=== PATIENT | male | born 1985 | race Caucasian/White ===

== ENCOUNTER 2017-02-22 20:50 | Emergency (ER) | payer OTHER ==
[2017-02-22 21:03] VITALS: BP 115/65; PULSE 79; TEMP 97.9; BMI 25.8
[2017-02-22] MEDS ORDERED: predniSONE 20 MG TABLET (UD) ONE (22:04)
[2017-02-22] MEDS ORDERED: ALBUTEROL SO4 2.5/IPRATROPIUM 0.5 INH SOL 3 ML VIAL.NEB. NEB ONE (22:05)
--- NOTE | 2017-02-22 22:50 | PDOC ---
History of Present Illness - General Chief Complaint: Cold Symptoms Stated Complaint: COUGH/COUGHING BLOOD Time Seen by Provider: 02/22/17 21:55 History Source: Patient, Parent(s) Exam Limitations: No Limitations - History of Present Illness Initial Comments: 02/22/17 22:45 came for evaluation of wheezing and cough=- thinks is related to allergies . Denies fever, denies phlegm or nasal drainage but states cough has become more moist and feels tighter. His takenZyrtec and nasal steroids per prescription, but without relief. 02/22/17 22:59 Timing/Duration: reports: changing over time, getting worse Severity: reports: moderate Modifying Factors: improves with: albuterol inhaler, coughing Associated Symptoms: reports: cough, earache. denies: chest pain/soreness, dizziness, fever/chills Past History - Travel Traveled outside of the country in the last 30 days: Yes Close contact w/someone who was outside of country & ill: Yes - Past Medical History Allergies/Adverse Reactions: Allergies Allergy/AdvReac Type Severity Reaction Status Date / Time No Known Allergies Allergy Verified 02/22/17 20:59 Home Medications: Ambulatory Orders Albuterol Sulfate [Proventil HFA Inhaler -] 1 - 2 inh PO QID #1 inhaler Prednisone [Deltasone -] 20 mg PO BID #8 tablet 02/22/17 Other medical history: polycythemia vera - Surgical History Abdominal Surgery: Yes (INGUINAL AND UMBILICAL HERNIA REPAIR) - Psycho/Social/Smoking Cessation Hx Suicidal Ideation: No Smoking History: Never smoked Have you smoked in the past 12 months: No Number of Cigarettes Smoked Daily: 0 Information on smoking cessation initiated: No Hx Alcohol Use: Yes (WEEKENDS) Drug/Substance Use Hx: No Substance Use Type: Alcohol Review of Systems - Review of Systems Able to Perform ROS?: Yes Is the patient limited Ugandan proficient: Yes Constitutional: Yes: Symptoms Reported, See HPI, Malaise. No: Fever HEENTM: Yes: See HPI, Nose Congestion. No: Symptoms Reported Respiratory: Yes: Symptoms reported, See HPI, Cough, Wheezing ABD/GI: Yes: Symptoms Reported, See HPI Integumentary: Yes: Symptoms Reported Neurological: Yes: Symptoms reported, See HPI. No: Headache All Other Systems: Reviewed and Negative *Physical Exam - Vital Signs Last Vital Signs Temp Pulse Resp BP Pulse Ox 97.9 F 79 18 115/65 97 02/22/17 20:59 02/22/17 20:59 02/22/17 20:59 02/22/17 20:59 02/22/17 20:59 - Physical Exam General Appearance: Yes: Nourished, Appropriately Dressed, Apparent Distress, Mild Distress HEENT: positive: BHAVNA, Normal ENT Inspection, TMs Normal, Pharynx Normal Neck: positive: Supple. negative: Tender, Lymphadenopathy (R), Lymphadenopathy (L) Respiratory/Chest: positive: Lungs Clear (but tight ), Wheezing (tight inspiratory ). negative: Normal Breath Sounds, Respiratory Distress Cardiovascular: positive: Regular Rate Gastrointestinal/Abdominal: positive: Normal Bowel Sounds, Soft. negative: Tender Extremity: positive: Normal Capillary Refill, Normal Inspection Integumentary: positive: Normal Color, Dry, Pale Neurologic: positive: purse seiner II-XII NML intact, Fully Oriented, Alert, Normal Mood/ Affect, Normal Response, Motor Strength 5/5 Progress Note - Progress Note Progress Note: ALLERGIC rhinitis, will treat with steroids, Proventil and discharge *DC/Admit/Observation/Transfer Diagnosis at time of Disposition: Allergic rhinitis Qualifiers: Allergic rhinitis trigger: unspecified Allergic rhinitis seasonality: unspecified seasonality Qualified Code(s): J30.9 - Allergic rhinitis, unspecified - Discharge Dispostion Disposition: HOME Condition at time of disposition: Stable Admit: No - Patient Instructions Printed Discharge Instructions: DI for Allergic Rhinitis Additional Instructions: Rest, drink lots of fluids: Teas, water, soups Saltwater gargles. Consider humidifier in room at night Steamy showers/seem to face break up mucus Avoid contact with allergens, exposure to pollens, close windows on a windy day Lots of handwashing and good hygiene Continue [id number] medications for symptomatic relief- may use allergic eyedrops for itching I Continue antihistamines daily until pollen season is over; Zyrtec, Claritin, Nirmala during the daytime and Benadryl at nighttime as will make sleepy Tylenol or Motrin for fever and pain Followup with private physician in one to 2 days as needed Consider following up with an ict account manager/confectionery maker for skin testing and possible allergy shots Return to emergency department for worsened symptoms, fevers, dehydration - Post Discharge Activity Work/School Note: Back to Work
== END 2017-02-22 22:58 | disposition home or self-care (01) ==
LOC: JERFT 20:50
DX: J30.9 Allergic rhinitis, unspecified (principal)
CPT/HCPCS: 99281-25

== ENCOUNTER → 2017-05-01 | Emergency (ER) | payer OTHER ==
[2017-05-01 02:37] VITALS: BP 131/86; PULSE 84; TEMP 97.5; BMI 28.1
--- NOTE | 2017-05-01 03:04 | PDOC ---
History of Present Illness - General Chief Complaint: Palpitations Stated Complaint: PALPITATIONS Time Seen by Provider: 05/01/17 03:02 History Source: Patient Exam Limitations: No Limitations - History of Present Illness Initial Comments: 05/01/17 04:05 31-year-old male with no medical history presents to the emergency department complaining of chest palpitations. Patient states he was resting yesterday, watching television when he felt an acute onset of chest palpitations lasting for approximately 2 minutes. This evening at approximately 2300 hrs., patient felt a second episode of chest palpitations lasting approximately 30 seconds while at rest. Patient denies headache, dizziness, lightheadedness, visual disturbance, neck pain, back pains, shortness of breath, abdominal pains, extremity numbness or tingling sensation. Patient denies any cardiac history. Patient states he's been a bit stress over the past 2 weeks Presenting Symptoms: Chest Pain Timing/Duration: reports: intermittent Severity/Quality: reports: dull Past History - Travel Traveled outside of the country in the last 30 days: No Close contact w/someone who was outside of country & ill: No - Past Medical History Allergies/Adverse Reactions: Allergies Allergy/AdvReac Type Severity Reaction Status Date / Time No Known Allergies Allergy Verified 05/01/17 02:20 Home Medications: Ambulatory Orders Albuterol Sulfate [Proventil HFA Inhaler -] 1 - 2 inh PO QID #1 inhaler Prednisone [Deltasone -] 20 mg PO BID #8 tablet 02/23/17 - Surgical History Abdominal Surgery: Yes (INGUINAL AND UMBILICAL HERNIA REPAIR) - Psycho/Social/Smoking Cessation Hx Suicidal Ideation: No Smoking History: Never smoked Have you smoked in the past 12 months: No Number of Cigarettes Smoked Daily: 0 Information on smoking cessation initiated: No Hx Alcohol Use: No Drug/Substance Use Hx: No Substance Use Type: Alcohol Review of Systems - Review of Systems Able to Perform ROS?: Yes Comments:: 05/01/17 04:10 CONSTITUTIONAL: Absent: fever, chills, diaphoresis, generalized weakness, malaise, loss of appetite HEENT: Absent: rhinorrhea, nasal congestion, throat pain, throat swelling, difficulty swallowing, mouth swelling, ear pain, eye pain, visual Changes CARDIOVASCULAR: +chest palpitations Absent: chest pain, loss of consciousness, palpitations, irregular heart rate, peripheral edema RESPIRATORY: Absent: cough, shortness of breath, dyspnea with exertion, orthopnea, wheezing, stridor, hemoptysis GASTROINTESTINAL: Absent: abdominal pain, abdominal distension, nausea, vomiting, diarrhea, constipation, melena, hematochezia GENITOURINARY: Absent: dysuria, frequency, urgency, hesitancy, hematuria, flank pain, genital pain MUSCULOSKELETAL: Absent: myalgia, arthralgia, joint swelling SKIN: Absent: rash, itching, pallor HEMATOLOGIC/IMMUNOLOGIC: Absent: easy bleeding, easy bruising, lymphadenopathy, frequent infections ENDOCRINE: Absent: unexplained weight gain, unexplained weight loss, heat intolerance, cold intolerance NEUROLOGIC: Absent: headache, focal weakness or paresthesias, dizziness, unsteady gait, seizure, mental status changes, bladder or bowel incontinence PSYCHIATRIC: Absent: anxiety, depression, suicidal or homicidal ideation, hallucinations. Is the patient limited Irish proficient: No *Physical Exam - Vital Signs Last Vital Signs Temp Pulse Resp BP Pulse Ox 97.5 F L 84 20 131/86 98 05/01/17 02:20 05/01/17 02:20 05/01/17 02:20 05/01/17 02:20 05/01/17 02:20 - Physical Exam Comments: 05/01/17 04:10 GENERAL: Well developed, well nourished. Awake and alert. No acute distress. HEENT: Normocephalic, atraumatic. PERRLA, EOMI. No conjunctival pallor. Sclera are non- icteric. Moist mucous membranes. Oropharynx is clear. NECK: Supple. Full ROM. No JVD. Carotid pulses 2+ and symmetric, without bruits. No thyromegaly. No lymphadenopathy. CARDIOVASCULAR: Regular rate and rhythm. No murmurs, rubs, or gallops. Distal pulses are 2+ and symmetric. PULMONARY: No evidence of respiratory distress. Lungs clear to auscultation bilaterally. No wheezing, rales or rhonchi. ABDOMINAL: Soft. Non-tender. Non-distended. No rebound or guarding. No organomegaly. Normoactive bowel sounds. MUSCULOSKELETAL Normal range of motion at all joints. No bony deformities or tenderness. No CVA tenderness. EXTREMITIES: No cyanosis. No clubbing. No edema. No calf tenderness. SKIN: Warm and dry. Normal capillary refill. No rashes. No jaundice. NEUROLOGICAL: Alert, awake, appropriate. Cranial nerves 2-12 intact. No deficits to light touch and temperature in face, upper extremities and lower extremities. No motor deficits in the in face, upper extremities and lower extremities. Normoreflexic in the upper and lower extremities. Normal speech. Toes are down- going bilaterally. Gait is normal without ataxia. PSYCHIATRIC: Cooperative. Good eye contact. Appropriate mood and affect. Heart Score/ECG Review - History History: Slightly suspicious - Electrocardiogram EKG: Normal - Age Age: >/= 65 - Risk Factors Based on the list above the patient has:: No risk factors known - Troponin Troponin: </= normal limit - Score Heart Score - Total: 2 ED Treatment Course - LABORATORY CBC & Chemistry Diagram: 05/01/17 03:08 05/01/17 03:08 - ADDITIONAL ORDERS Additional order review: Laboratory Results 05/01/17 05/01/17 03:08 03:08 Sodium 141 Potassium 4.3 Chloride 105 Carbon Dioxide 30 Anion Gap 6 L BUN 13 Creatinine 0.9 Creat Clearance w eGFR > 60 Random Glucose 87 Calcium 8.9 Total Bilirubin 0.3 D AST 18 ALT 32 D Alkaline Phosphatase 66 Creatine Kinase 126 Troponin I < 0.02 Total Protein 7.3 Albumin 3.8 Opiates Screen Negative Methadone Screen Negative Barbiturate Screen Negative Phencyclidine Screen Negative Ur Amphetamines Screen Negative MDMA (Ecstasy) Screen Negative Benzodiazepines Screen Negative Cocaine Screen Negative U Marijuana (THC) Screen Negative 05/01/17 03:08 RBC 6.21 H MCV 78.1 L MCHC 32.3 RDW 17.1 H MPV 9.1 Neutrophils % 35.5 L Lymphocytes % 52.4 H Monocytes % 7.5 Eosinophils % 3.6 Basophils % 1.0 - RADIOLOGY Radiograph Interpretation: 05/01/17 04:53 CXR 2v NAD *DC/Admit/Observation/Transfer Diagnosis at time of Disposition: Heart palpitations - Discharge Dispostion Condition at time of disposition: Stable Admit: No - Referrals Referrals: Colton Salamanca MD [Staff Physician] - - Patient Instructions Printed Discharge Instructions: DI for Palpitations Additional Instructions: Follow up with the optometry doctor this week. You will need an echocardiogram Return to the ER for severe/persistent/worsening symptoms
[2017-05-01 03:19] LABS: EOSINOPHIL 3.6 % (0-4.5); MCH 25.3 pg (25.7-33.7); MCHC 32.3 g/dl (32.0-35.9); MEAN CELL VOLUME 78.1 fl (80-96); MEAN PLT VOLUME 9.1 fl (7.5-11.1); NEUTROPHILS 35.5 % (42.8-82.8); PLATELET COUNT 227 K/MM3 (134-434); RDW 17.1 % (11.9-15.9)
[2017-05-01 03:34] LABS: URINE MARIJUANA THC NEGATIVE ng/ml (CUTOFF=50)
[2017-05-01 03:50] LABS: ALBUMIN 3.8 g/dl (3.4-5.0); ANION GAP 6 (8-16); BILIRUBIN,TOTAL 0.3 mg/dL (0.2-1.0); CALCIUM 8.9 mg/dL (8.5-10.1); CO2 30 mmol/L (21-32); CREATININE 0.9 mg/dL (0.7-1.3); GLUCOSE,RANDOM 87 mg/dL (74-106); SGPT/ALT 32 U/L (12-78); TOT PROT 7.3 g/dl (6.4-8.2)
[2017-05-01 03:56] LABS: ALK PHOS 66 U/L (45-117); TROPONIN I < 0.02 ng/ml (0.00-0.05)
[2017-05-01 03:57] LABS: SGOT/AST 18 U/L (15-37)
--- NOTE | 2017-05-03 09:29 | EKG ---
Test Reason : Blood Pressure : / mmHG Vent. Rate : 076 BPM Atrial Rate : 076 BPM P-R Int : 156 ms QRS Dur : 082 ms QT Int : 354 ms P-R-T Axes : 055 060 024 degrees QTc Int : 398 ms NORMAL SINUS RHYTHM NORMAL ECG WHEN COMPARED WITH ECG OF 28-SEP-2016 16:59, NO SIGNIFICANT CHANGE WAS FOUND Confirmed by HERMAN GUTIÉRREZ MD ([id number]) on 05/03/2017 9:28:53 AM Referred By: Confirmed By:HERMAN GUTIÉRREZ MD
== END | disposition home or self-care (01) ==
LOC: JER 01:19
DX: R00.2 Palpitations (principal)
CPT/HCPCS: 36415; 71020-TC; 80053; 80307; 82550; 84484; 85025; 93005; 93010; 99283-25

== ENCOUNTER 2017-07-07 23:26 | Emergency (ER) | payer OTHER ==
[2017-07-07 23:35] VITALS: BP 136/84; PULSE 93; TEMP 98.4; BMI 26.5
--- NOTE | 2017-07-08 00:39 | PDOC ---
History of Present Illness - General History Source: Patient <ElliottkhloePaco - Last Filed: 07/08/17 00:42> - General History Source: Patient Exam Limitations: No Limitations <Mary Matta - Last Filed: 07/08/17 00:51> - General Chief Complaint: Palpitations Stated Complaint: PALPITATIONS Time Seen by Provider: 07/08/17 00:39 - History of Present Illness Initial Comments: 07/08/17 00:50 31 yo M with no pmhx who presents to the ED with complaint of palpitations. Patient was seen here in April for the same complaint, had lab work done, EKG was good and he was referred to Dr. Salamanca of cardiology for follow up. He notes that his palpitations continue. He denies any cp, SOB, nausea, vomiting, diarrhea, fever, chills. He denies any urinary complaints. He denies any recent travel outside of the country [place] - no alcohol use, cigarette use or IVDU. (Mary Matta) Past History - Past Medical History Anemia: No Asthma: No Cancer: No Cardiac Disorders: No CVA: No COPD: No DVT: No Dementia: No Diabetes: No Dialysis: No GI Disorders: No Disorders: No HTN: No Hypercholesterolemia: No Kidney Stones: No Liver Disease: No Psychiatric Problems: No Seizures: No Thyroid Disease: Yes (Sleep Problems) Lung CA: No - Surgical History Abdominal Surgery: Yes (INGUINAL AND UMBILICAL HERNIA REPAIR) - Suicide/Smoking/Psychosocial Hx Smoking History: Never smoked Have you smoked in the past 12 months: No Number of Cigarettes Smoked Daily: 0 Hx Alcohol Use: No Drug/Substance Use Hx: No Substance Use Type: Alcohol <Paco Yang - Last Filed: 07/08/17 00:42> <Mary Matta - Last Filed: 07/08/17 00:51> - Past Medical History Allergies/Adverse Reactions: Allergies Allergy/AdvReac Type Severity Reaction Status Date / Time No Known Allergies Allergy Verified 07/07/17 23:35 Home Medications: Ambulatory Orders Diphenhydramine HCl [Benadryl -] 25 mg PO HS 05/01/17 Review of Systems <Paco Yang - Last Filed: 07/08/17 00:42> - Review of Systems Able to Perform ROS?: Yes <Mary Matta - Last Filed: 07/08/17 00:51> - Review of Systems Comments:: 07/08/17 00:50 CONSTITUTIONAL: Absent: fever, chills, diaphoresis, generalized weakness, malaise, loss of appetite HEENT: Absent: rhinorrhea, nasal congestion, throat pain, throat swelling, difficulty swallowing, mouth swelling, ear pain, eye pain, visual Changes CARDIOVASCULAR: Present: palpitations Absent: chest pain, syncope, irregular heart rate, lightheadedness, peripheral edema RESPIRATORY: Absent: cough, shortness of breath, dyspnea with exertion, orthopnea, wheezing, stridor, hemoptysis GASTROINTESTINAL: Absent: abdominal pain, abdominal distension, nausea, vomiting, diarrhea, constipation, melena, hematochezia GENITOURINARY: Absent: dysuria, frequency, urgency, hesitancy, hematuria, flank pain, genital pain MUSCULOSKELETAL: Absent: myalgia, arthralgia, joint swelling SKIN: Absent: rash, itching, pallor HEMATOLOGIC/IMMUNOLOGIC: Absent: easy bleeding, easy bruising, lymphadenopathy, frequent infections ENDOCRINE: Absent: unexplained weight gain, unexplained weight loss, heat intolerance, cold intolerance NEUROLOGIC: Absent: headache, focal weakness or paresthesias, dizziness, unsteady gait, seizure, mental status changes, bladder or bowel incontinence PSYCHIATRIC: Absent: anxiety, depression, suicidal or homicidal ideation, hallucinations. (Mary Matta) *Physical Exam <Paco Yang - Last Filed: 07/08/17 00:42> <Mary Matta - Last Filed: 07/08/17 00:51> - Vital Signs Last Vital Signs Temp Pulse Resp BP Pulse Ox 98.4 F 93 H 18 136/84 99 07/07/17 23:33 07/07/17 23:33 07/07/17 23:33 07/07/17 23:33 07/07/17 23:33 - Physical Exam Comments: 07/08/17 00:50 GENERAL: Well developed, well nourished. Awake and alert. In no acute distress. HEENT: Normocephalic, atraumatic. PERRLA, EOMI. No conjunctival pallor. Sclerae are non -icteric. Moist mucous membranes. Oropharynx is clear. NECK: Supple. Full ROM. No JVD. Carotid pulses 2+ and symmetric, without bruits. No thyromegaly. No lymphadenopathy. CARDIOVASCULAR: Regular rate and rhythm. No murmurs, rubs, or gallops. Distal pulses are 2+ and symmetric. PULMONARY: No evidence of respiratory distress. Lungs clear to auscultation bilaterally. No wheezing, rales or rhonchi. ABDOMINAL: Soft. Non-tender. Non-distended. No rebound or guarding. No organomegaly. Normoactive bowel sounds. MUSCULOSKELETAL Normal range of motion at all joints. No bony deformities or tenderness. No CVA tenderness. EXTREMITIES: No cyanosis. No clubbing. No edema. No calf tenderness. SKIN: Warm and dry. Normal capillary refill. No rashes. No jaundice. NEUROLOGICAL: Alert, awake, appropriate. Cranial nerves 2-12 intact. No deficits to light touch and temperature in face, upper extremities and lower extremities. No motor deficits in the in face, upper extremities and lower extremities. Normoreflexic in the upper and lower extremities. Normal speech. Toes are downgoing bilaterally. PSYCHIATRIC: Cooperative. Good eye contact. Appropriate mood and affect. (Mary Matta) Heart Score/ECG Review <Mary Matta - Last Filed: 07/08/17 00:51> #1 07/08/17 00:51 NS at 89 bpm Normal ECG (Mary Matta) *DC/Admit/Observation/Transfer - Discharge Dispostion Admit: No <Paco Yang - Last Filed: 07/08/17 00:42> <Mary Matta - Last Filed: 07/08/17 00:51> Diagnosis at time of Disposition: Heart palpitations - Referrals Referrals: Colton Salamanca MD [Staff Physician] - - Patient Instructions Printed Discharge Instructions: DI for Palpitations Additional Instructions: Please make appointment earlier to follow up with cardiology. - Attestations Scribe Attestion: 07/08/17 00:51 Documentation prepared by FLORA Amezquita, acting as director of graduate medical education for Paco Yang DO. (Mary Matta)
--- NOTE | 2017-07-15 14:18 | EKG ---
Test Reason : Blood Pressure : / mmHG Vent. Rate : 089 BPM Atrial Rate : 089 BPM P-R Int : 154 ms QRS Dur : 086 ms QT Int : 352 ms P-R-T Axes : 051 061 028 degrees QTc Int : 428 ms NORMAL SINUS RHYTHM NORMAL ECG WHEN COMPARED WITH ECG OF 01-MAY-2017 02:03, NO SIGNIFICANT CHANGE WAS FOUND Confirmed by HERMAN GUTIÉRREZ MD ([id number]) on 07/15/2017 2:17:55 PM Referred By: Confirmed By:HERMAN GUTIÉRREZ MD
== END 2017-07-08 00:46 | disposition home or self-care (01) ==
LOC: JER 23:26
DX: R00.2 Palpitations (principal)
CPT/HCPCS: 93005; 93010; 99282-25

== ENCOUNTER 2017-07-18 20:51 | Emergency (ER) | payer OTHER ==
[2017-07-18 21:08] VITALS: BP 131/83; PULSE 87; TEMP 98.6; BMI 25.8
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
== END 2017-07-18 22:15 | disposition home or self-care (01) ==
LOC: JERFT 20:51
DX: R09.81 Nasal congestion (principal)
CPT/HCPCS: 99281-25

== ENCOUNTER 2018-02-26 02:17 | Emergency (ER) | payer OTHER ==
--- NOTE | 2018-02-26 03:19 | PDOC ---
History of Present Illness - General History Source: Patient Exam Limitations: No Limitations - History of Present Illness Initial Comments: 02/26/18 06:35 Patient is a 32 year old male with no significant past medical history who presents to the ED with complaints of coughing that he states began x3 weeks ago. Patient reports experiencing cough sudden cough that he states began 3 weeks ago, and has shown no signs of subsiding. He reports experiencing associated right flank pain that he states is increased secondary to cough. Patient reports going to urgent care earlier this week for cough, stating he was prescribed cough medicine and discharged. Denies chest pain, sob. Denies nausea vomiting. Denies fevers, chills. Denies contact with sick individuals, out of state travelling. Denies any other symptoms. Allergies: None Social history: Lived with girlfriend. No smoking. No alcohol. No illicit drugs. Surgical history: None PMD: None <Beny Calderon - Last Filed: 02/26/18 06:35> <Eva Arreguin - Last Filed: 02/27/18 05:25> - General Stated Complaint: COUGH, BACK PAIN Time Seen by Provider: 02/26/18 03:00 Past History <Beny Calderon - Last Filed: 02/26/18 06:35> - Past Medical History Anemia: No Asthma: No Cancer: No Cardiac Disorders: No CVA: No COPD: No DVT: No Dementia: No Diabetes: No Dialysis: No GI Disorders: No Disorders: No HTN: No Hypercholesterolemia: No Kidney Stones: No Liver Disease: No Psychiatric Problems: No Seizures: No Thyroid Disease: Yes (Sleep Problems) Lung CA: No - Surgical History Abdominal Surgery: Yes (INGUINAL AND UMBILICAL HERNIA REPAIR) - Suicide/Smoking/Psychosocial Hx Smoking History: Never smoked Have you smoked in the past 12 months: No Number of Cigarettes Smoked Daily: 0 Hx Alcohol Use: No Drug/Substance Use Hx: No Substance Use Type: Alcohol <Eva Arreguin - Last Filed: 02/27/18 05:25> - Past Medical History Allergies/Adverse Reactions: Allergies Allergy/AdvReac Type Severity Reaction Status Date / Time No Known Allergies Allergy Verified 07/18/17 21:06 Home Medications: Ambulatory Orders Ibuprofen 600 mg PO TID #21 tablet 07/18/17 Pseudoephedrine HCl [Sudafed 12 Hour] 120 mg PO BID #14 tablet.er 07/18/17 Azithromycin [Zithromax -] 250 mg PO DAILY #4 tab 02/26/18 Review of Systems - Review of Systems Able to Perform ROS?: Yes Comments:: 02/26/18 06:35 GENERAL/CONSTITUTIONAL: No fever or chills. No weakness. HEAD, EYES, EARS, NOSE AND THROAT: No change in vision. No ear pain or discharge. No sore throat. CARDIOVASCULAR: No chest pain or shortness of breath. RESPIRATORY: +Cough. No wheezing, or hemoptysis. GASTROINTESTINAL: No nausea, vomiting, diarrhea or constipation. GENITOURINARY: No dysuria, frequency, or change in urination. MUSCULOSKELETAL: +Right flank pain. No joint or muscle swelling or pain. No neck pain. SKIN: No rash NEUROLOGIC: No headache, vertigo, loss of consciousness, or change in strength/ sensation. ENDOCRINE: No increased thirst. No abnormal weight change. HEMATOLOGIC/LYMPHATIC: No anemia, easy bleeding, or history of blood clots. ALLERGIC/IMMUNOLOGIC: No hives or skin allergy. <Beny Calderon - Last Filed: 02/26/18 06:35> *Physical Exam - Vital Signs Last Vital Signs Temp Pulse Resp BP Pulse Ox 98.2 F 91 H 18 127/87 95 02/26/18 03:19 02/26/18 03:19 02/26/18 03:19 02/26/18 03:19 02/26/18 03:19 - Physical Exam Comments: 02/26/18 06:35 GENERAL: Awake, alert, and fully oriented, in no acute distress HEAD: No signs of trauma EYES: PERRLA, EOMI, sclera anicteric, conjunctiva clear ENT: Auricles normal inspection, hearing grossly normal, nares patent, oropharynx clear without exudates. Moist mucosa NECK: Normal ROM, supple, no lymphadenopathy, JVD, or masses LUNGS: Breath sounds equal, clear to auscultation bilaterally. No wheezes, and no crackles HEART: Regular rate and rhythm, normal S1 and S2, no murmurs, rubs or gallops ABDOMEN: Soft, nontender, normoactive bowel sounds. No guarding, no rebound. No masses EXTREMITIES: Normal range of motion, no edema. No clubbing or cyanosis. No cords, erythema, or tenderness NEUROLOGICAL: Cranial nerves II through XII grossly intact. Normal speech, normal gait SKIN: Warm, Dry, normal turgor, no rashes or lesions noted. <Beny Calderon - Last Filed: 02/26/18 06:35> ED Treatment Course - Medications Given in the ED: ED Medications Discontinued Medications Generic Name Dose Route Start Last Admin Trade Name Charlotte PRN Reason Stop Dose Admin Azithromycin 500 mg 02/26/18 03:47 02/26/18 04:31 Zithromax - PO 02/26/18 03:48 500 mg ONCE ONE Administration <eBny Calderon - Last Filed: 02/26/18 06:35> Medical Decision Making - Medical Decision Making 02/27/18 05:24 Pt comes with 3 weeks of cough; likely atypical pneumonia; I will get a CXR to r /o bad pathology; if normal CXR I will treat for atypical bacteria with a zpak. Exam as above. <Eva Arreguin - Last Filed: 02/27/18 05:25> *DC/Admit/Observation/Transfer - Attestations Scribe Attestion: 02/26/18 06:35 Documentation prepared by Beny Calderon, acting as senior medical billing specialist for Eva Arreguin MD. <Beny Calderon - Last Filed: 02/26/18 06:35> - Discharge Dispostion Decision to Admit order: No <Eva Arreguin - Last Filed: 02/27/18 05:25> Diagnosis at time of Disposition: Atypical pneumonia - Discharge Dispostion Disposition: HOME Condition at time of disposition: Stable - Prescriptions Prescriptions: Azithromycin [Zithromax -] 250 mg PO DAILY #4 tab - Patient Instructions Printed Discharge Instructions: DI for Atypical Pneumonia
[2018-02-26 03:23] VITALS: BP 127/87; PULSE 91; TEMP 98.2; BMI 27.1
[2018-02-26] MEDS ORDERED: AZITHROMYCIN 250 MG TABLET PO ONE (03:47)
[2018-02-26] MEDS ORDERED: AZITHROMYCIN 250 MG TABLET ONE (04:31)
== END 2018-02-26 04:38 | disposition home or self-care (01) ==
LOC: JER 02:17
DX: J18.9 Pneumonia, unspecified organism (principal)
CPT/HCPCS: 71046-TC-FY; 99281-25

== ENCOUNTER 2018-04-15 19:55 | Emergency (ER) | payer OTHER ==
[2018-04-15 20:33] VITALS: BP 118/67; PULSE 75; TEMP 98; BMI 28.1
--- NOTE | 2018-04-15 22:49 | PDOC ---
History of Present Illness - History of Present Illness Initial Comments: <Laureen Wolf - Last Filed: 04/15/18 22:51> - General History Source: Patient Exam Limitations: No Limitations - History of Present Illness Initial Comments: The patient is a 32 year old male with a significant PMH of acid reflux presenting with left ear and eye pain for two days. The patient states the his eye pain is worse with eye movement. Patient denies similar symptoms in the past. The patient admits to photophobia but denies any eye or ear discharge. The patient reports he had an accident when he was young in which he had an infection in his right eye and follows with an opthamologist to keep his left eye healthy. Patient has a scheduled appointment next week. The patient states he had high pressure in his left eye one year ago and was prescribed eye drops at the time. The patient denies any vision changes. The patient states he took Tylenol with no relief. The patient denies chest pain, shortness of breath, headache and dizziness. Denies fever, chills, nausea, vomit, diarrhea and constipation. Allergies: NKA Past surgical history: hernia surgery Social history: No reported alcohol, drug, or cigarette use. PCP: Dr. Valentine <Lori Vizcaino - Last Filed: 04/16/18 00:37> - General Chief Complaint: Eye Problem Stated Complaint: EYE PAIN Time Seen by Provider: 04/15/18 22:48 Past History <Laureen Wolf - Last Filed: 04/15/18 22:51> - Past Medical History Anemia: No Asthma: No Cancer: No Cardiac Disorders: No CVA: No COPD: No DVT: No Dementia: No Diabetes: No Dialysis: No GI Disorders: No Disorders: No HTN: No Hypercholesterolemia: No Kidney Stones: No Liver Disease: No Psychiatric Problems: No Seizures: No Thyroid Disease: Yes (Sleep Problems) Lung CA: No - Surgical History Abdominal Surgery: Yes (INGUINAL AND UMBILICAL HERNIA REPAIR) - Suicide/Smoking/Psychosocial Hx Smoking History: Never smoked Have you smoked in the past 12 months: No Number of Cigarettes Smoked Daily: 0 Information on smoking cessation initiated: No Hx Alcohol Use: No Drug/Substance Use Hx: No Substance Use Type: Alcohol <Lori Vizcaino - Last Filed: 04/16/18 00:37> - Past Medical History Allergies/Adverse Reactions: Allergies Allergy/AdvReac Type Severity Reaction Status Date / Time No Known Allergies Allergy Verified 04/15/18 23:00 Home Medications: Ambulatory Orders Ibuprofen 600 mg PO TID #21 tablet 07/18/17 Pseudoephedrine HCl [Sudafed 12 Hour] 120 mg PO BID #14 tablet.er 07/18/17 Review of Systems - Review of Systems Able to Perform ROS?: Yes Comments:: GENERAL/CONSTITUTIONAL: No fever or chills. No weakness. HEAD, EYES, EARS, NOSE AND THROAT: (+) Left eye pain. (+) Left ear pain. No change in vision. No ear discharge. No sore throat. CARDIOVASCULAR: No chest pain or shortness of breath. RESPIRATORY: No cough, wheezing, or hemoptysis. GASTROINTESTINAL: No nausea, vomiting, diarrhea or constipation. GENITOURINARY: No dysuria, frequency, or change in urination. MUSCULOSKELETAL: No joint or muscle swelling or pain. No neck or back pain. SKIN: No rash NEUROLOGIC: No headache, vertigo, loss of consciousness, or change in strength/ sensation. ENDOCRINE: No increased thirst. No abnormal weight change. HEMATOLOGIC/LYMPHATIC: No anemia, easy bleeding, or history of blood clots. ALLERGIC/IMMUNOLOGIC: No hives or skin allergy. <Lori Vizcaino - Last Filed: 04/16/18 00:37> *Physical Exam - Vital Signs Last Vital Signs Temp Pulse Resp BP Pulse Ox 98.0 F 75 18 118/67 100 04/15/18 20:30 04/15/18 20:30 04/15/18 20:30 04/15/18 20:30 04/15/18 20:30 <Laureen Wolf - Last Filed: 04/15/18 22:51> - Vital Signs Last Vital Signs Temp Pulse Resp BP Pulse Ox 98.0 F 75 18 118/67 100 04/15/18 20:30 04/15/18 20:30 04/15/18 20:30 04/15/18 20:30 04/15/18 20:30 - Physical Exam Comments: GENERAL: Awake, alert, and fully oriented, in no acute distress HEAD: No signs of trauma EYES: PERRLA, EOMI, sclera anicteric, conjunctiva clear. Fluorescein stain of L eye- no abnormal uptake. ENT: Auricles normal inspection, hearing grossly normal, nares patent, oropharynx clear without exudates. Moist mucosa NECK: Normal ROM, supple, no lymphadenopathy, JVD, or masses EXTREMITIES: Normal range of motion, no edema. No clubbing or cyanosis. No cords, erythema, or tenderness NEUROLOGICAL: Cranial nerves II through XII grossly intact. Normal speech, normal gait. Motor and sensation intact. SKIN: Warm, Dry, normal turgor, no rashes or lesions noted. <Lori Vizcaino - Last Filed: 04/16/18 00:37> Medical Decision Making - Medical Decision Making No swelling around the eye, no redness, no signs of infection. No tenderness to palpation of the globe over the eyelid. Globe is not firm, not indurated. Fluorescein exam negative. Advised him to call his shake cutter in AM for follow-up. <Lori Vizcaino - Last Filed: 04/16/18 00:37> *DC/Admit/Observation/Transfer <Laureen Wolf - Last Filed: 04/15/18 22:51> - Discharge Dispostion Decision to Admit order: No <Lori Vizcaino - Last Filed: 04/16/18 00:37> Diagnosis at time of Disposition: Left eye pain - Discharge Dispostion Disposition: HOME Condition at time of disposition: Stable - Patient Instructions Printed Discharge Instructions: DI for Eye Pain
[2018-04-15] MEDS ORDERED: IBUPROFEN 600 MG TABLET (FP) PO ONE ×2 (22:50→22:56)
== END 2018-04-15 23:00 | disposition home or self-care (01) ==
LOC: JERFT 19:55 → JER 19:55
DX: H57.12 Ocular pain, left eye (principal); K21.9 Gastro-esophageal reflux disease without esophagitis
CPT/HCPCS: 99281-25

== ENCOUNTER 2019-07-19 13:41 | Emergency (ER) | payer OTHER ==
[2019-07-19 13:50] VITALS: BP 120/85; PULSE 82; TEMP 98.3; BMI 27.2
[2019-07-19] MEDS ORDERED: ACETAMINOPHEN 650 MG/20.3 ML ORAL SOLUTION (CUPS) PO ONE (14:20)
[2019-07-19] MEDS ORDERED: DEXAMETHASONE LIQUID 0.5 MG/5 ML PO ONE (14:20)
[2019-07-19] MEDS ORDERED: DEXAMETHASONE SOD PHOSPHATE 10 MG/1 ML VIAL ONE (14:25)
[2019-07-19] MEDS ORDERED: ACETAMINOPHEN 650 MG/20.3 ML ORAL SOLUTION (CUPS) ONE (14:26)
--- NOTE | 2019-07-19 15:04 | PDOC ---
History of Present Illness - General Chief Complaint: Sore Throat Stated Complaint: THROAT PAIN AND LT EAR PAIN Time Seen by Provider: 07/19/19 13:50 History Source: Patient Exam Limitations: No Limitations Past History - Travel Traveled outside of the country in the last 30 days: No Close contact w/someone who was outside of country & ill: No - Past Medical History Allergies/Adverse Reactions: Allergies Allergy/AdvReac Type Severity Reaction Status Date / Time No Known Allergies Allergy Verified 07/19/19 13:48 Home Medications: Ambulatory Orders Ibuprofen 600 mg PO TID #21 tablet 07/18/17 Pseudoephedrine HCl [Sudafed 12 Hour] 120 mg PO BID #14 tablet.er 07/18/17 Anemia: No Asthma: No Cancer: No Cardiac Disorders: No CVA: No COPD: No DVT: No Dementia: No Diabetes: No Dialysis: No GI Disorders: No Disorders: No HTN: No Hypercholesterolemia: No Kidney Stones: No Liver Disease: No Psychiatric Problems: No Seizures: No Thyroid Disease: Yes (Sleep Problems) Lung CA: No - Surgical History Abdominal Surgery: Yes (INGUINAL AND UMBILICAL HERNIA REPAIR) - Immunization History Immunization Up to Date: Yes - Psycho Social/Smoking Cessation Hx Smoking History: Never smoked Have you smoked in the past 12 months: No Number of Cigarettes Smoked Daily: 0 Hx Alcohol Use: No Drug/Substance Use Hx: No Substance Use Type: Alcohol Review of Systems - Review of Systems Able to Perform ROS?: Yes Comments:: 07/19/19 15:01 CONSTITUTIONAL: Absent: fever, chills, diaphoresis, generalized weakness, malaise, loss of appetite HEENT: Present: sore throat Absent: rhinorrhea, nasal congestion, throat swelling, difficulty swallowing, mouth swelling, ear pain, eye pain, visual Changes CARDIOVASCULAR: Absent: chest pain, loss of consciousness, palpitations, irregular heart rate, peripheral edema RESPIRATORY: Absent: cough, shortness of breath, dyspnea with exertion, orthopnea, wheezing, stridor, hemoptysis GASTROINTESTINAL: Absent: abdominal pain, abdominal distension, nausea, vomiting, diarrhea, constipation, melena, hematochezia GENITOURINARY: Absent: dysuria, frequency, urgency, hesitancy, hematuria, flank pain, genital pain MUSCULOSKELETAL: Absent: myalgia, arthralgia, joint swelling SKIN: Absent: rash, itching, pallor HEMATOLOGIC/IMMUNOLOGIC: Absent: easy bleeding, easy bruising, lymphadenopathy, frequent infections ENDOCRINE: Absent: unexplained weight gain, unexplained weight loss, heat intolerance, cold intolerance NEUROLOGIC: Absent: headache, focal weakness or paresthesias, dizziness, unsteady gait, seizure, mental status changes, bladder or bowel incontinence PSYCHIATRIC: Absent: anxiety, depression, suicidal or homicidal ideation, hallucinations. Is the patient limited Irish proficient: No *Physical Exam - Vital Signs Last Vital Signs Temp Pulse Resp BP Pulse Ox 98.3 F 82 16 120/85 97 07/19/19 13:48 07/19/19 13:48 07/19/19 13:48 07/19/19 13:48 07/19/19 13:48 - Physical Exam Comments: 07/19/19 15:01 GENERAL: Well developed, well nourished. Awake and alert. No acute distress. HEENT: Normocephalic, atraumatic. PERRLA, EOMI. No conjunctival pallor. Sclera are non- icteric. Moist mucous membranes. Oropharynx is with 3+ tonsils and erythema. No exudate noted. Uvula is midline. NECK: Supple. Full ROM. No JVD. Carotid pulses 2+ and symmetric, without bruits. No thyromegaly. No lymphadenopathy. CARDIOVASCULAR: Regular rate and rhythm. No murmurs, rubs, or gallops. Distal pulses are 2+ and symmetric. PULMONARY: No evidence of respiratory distress. Lungs clear to auscultation bilaterally. No wheezing, rales or rhonchi. ABDOMINAL: Soft. Non-tender. Non-distended. No rebound or guarding. No organomegaly. Normoactive bowel sounds. MUSCULOSKELETAL Normal range of motion at all joints. No bony deformities or tenderness. No CVA tenderness. EXTREMITIES: No cyanosis. No clubbing. No edema. No calf tenderness. SKIN: Warm and dry. Normal capillary refill. No rashes. No jaundice. NEUROLOGICAL: Alert, awake, appropriate. Cranial nerves 2-12 intact. No deficits to light touch and temperature in face, upper extremities and lower extremities. No motor deficits in the in face, upper extremities and lower extremities. Normoreflexic in the upper and lower extremities. Normal speech. Toes are down- going bilaterally. Gait is normal without ataxia. PSYCHIATRIC: Cooperative. Good eye contact. Appropriate mood and affect. ED Treatment Course - Medications Given in the ED: ED Medications Discontinued Medications Generic Name Dose Route Start Last Admin Trade Name Charlotte PRN Reason Stop Dose Admin Acetaminophen 650 mg 07/19/19 14:20 07/19/19 14:28 Tylenol Oral Solution - PO 07/19/19 14:21 650 mg ONCE ONE Administration Dexamethasone 10 mg 07/19/19 14:20 07/19/19 14:28 Decadron Liquid - PO 07/19/19 14:21 10 mg ONCE ONE Administration Medical Decision Making - Medical Decision Making 07/19/19 15:01 The patient is a 33-year-old male no past medical history presents to the ER with 3 days of sore throat. He states that it hurts to swallow. He also notes associated left ear pain. He believes he had a fever but did not take his temperature. He states he is taken Motrin at home with some relief of his symptoms. Denies difficulty breathing, shortness of breath. He is able to swallow his own secretions. He states he tried to make an appointment with his primary care provider however he was able to get an appointment until a week from now. A/P: Pharyngitis On exam tonsils are erythematous and edematous, 3+ in size. Uvula is midline. Rapid strep was obtained and is negative at this time. Most likely a viral infection. Decadron and Tylenol given with relief of symptoms. Will recommend supportive therapy and to keep his follow-up with his primary care doctor. Discharge home I discussed the physical exam findings, ancillary test results and final diagnoses with the patient. I answered all of the patient's questions. The patient was satisfied with the care received and felt comfortable with the discharge plan and treatment plan. The Patient agrees to follow up with the primary care physician/specialist within 24-72 hours. Return precautions were given. Discharge - Discharge Information Problems reviewed: Yes Clinical Impression/Diagnosis: Pharyngitis Qualifiers: Pharyngitis/tonsillitis etiology: unspecified etiology Qualified Code(s): J02.9 - Acute pharyngitis, unspecified Condition: Stable Disposition: HOME - Admission No - Follow up/Referral - Patient Discharge Instructions Patient Printed Discharge Instructions: DI for Viral Pharyngitis Additional Instructions: You have a sore throat or pharyngitis. Rapid strep testing was negative today. You may take Motrin 600 mg every 6 hours as needed for pain. Please do warm water gargles and cough drops to help with your pain. Change your toothbrush when you started feeling better. Follow-up with your primary care doctor. Return to the ER for fever, difficulty breathing, difficulty swallowing, or if you have any changes in your symptoms. Tiene dolor de garganta o faringitis. La prueba rpida de estreptococo fue negativa hoy. Puede kristan Motrin 600 mg cada 6 horas segn sea necesario para el dolor. Bobo grgaras con agua tibia y pastillas para la tos para aliviar garcia dolor. Cambie garcia cepillo de dientes cuando empiece a sentirse mejor. Bobo un seguimiento con garcia mdico de atencin primaria. Regrese a la kaylin de emergencias por fiebre, dificultad para respirar, dificultad para tragar o si tiene algn cambio en josefa sntomas. - Post Discharge Activity Work/Back to School Note: Back to Work
== END 2019-07-19 15:10 | disposition home or self-care (01) ==
LOC: JERFT 13:41
DX: J02.9 Acute pharyngitis, unspecified (principal); K92.9 Disease of digestive system, unspecified; Z98.890 Other specified postprocedural states
CPT/HCPCS: 87070; 87880; 99281-25

== ENCOUNTER 2021-02-27 20:00 | Emergency (ER) | payer OTHER ==
[2021-02-27 20:07] VITALS: TEMP 98.1; BMI 28.6
[2021-02-27] MEDS ORDERED: ACETAMINOPHEN 325 MG TABLET (FP) ONE (20:27)
[2021-02-27 21:07] LABS: PH,URINE 5.5 (5.0-8.0); URINE APPEARANCE CLEAR; URINE BILIRUBIN NEGATIVE (NEGATIVE); URINE COLOR YELLOW; URINE GLUCOSE (UA) NEGATIVE (NEGATIVE); URINE KETONE NEGATIVE (NEGATIVE); URINE LEUK ESTERASE NEGATIVE (NEGATIVE); URINE NITRITE NEGATIVE (NEGATIVE); URINE PROTEIN NEGATIVE (NEGATIVE); URINE UROBILINOGEN 0.2 mg/dL (0.2-1.0)
[2021-02-27] MEDS ORDERED: ACETAMINOPHEN 325 MG TABLET (FP) PO ONE (21:15)
[2021-02-27] MEDS ORDERED: DOXYCYCLINE HYCLATE 100 MG CAPSULE PO ONE ×2 (21:54→22:17)
[2021-02-27] MEDS ORDERED: cefTRIAXone SODIUM 1 GM VIAL ONE (21:56)
[2021-02-27 22:25] VITALS: BP 120/82; PULSE 78
== END 2021-02-27 22:25 | disposition home or self-care (01) ==
LOC: JER 20:00
DX: R10.2 Pelvic and perineal pain (principal)
CPT/HCPCS: 36415; 76870-TC; 81003; 87086; 87491; 87591; 99283-25